=== PATIENT | male | born 1980 | race Native Hawaiian/Other Pacific Islander ===

== ENCOUNTER 2020-06-25 02:13 | Inpatient (IN) | payer OTHER ==
[~2020-06-25] VITALS: Ht 168 cm; Wt 83.9 kg
--- NOTE | 2020-06-25 02:42 | ED Upper Extremity ---
General Chief Complaint: Upper Extremity Stated Complaint: R WRIST/HAND SWELLING/PAIN Nursing Triage Note: PUNCTURE WOUND TO RIGHT HAND 06/22/20 INCREASED PAIN/SWELLING Nursing Sepsis Screen: No Definite Risk Source: patient History of Present Illness Date Seen by Provider: Jun 25, 2020 Time Seen by Provider: 02:24 Initial Comments PT ARRIVES VIA POV FROM HOME STATES HE WAS AT WORK AT [employer] ON WEDNESDAY NIGHT 06/22/20, AND SUSTAINED A PUNCTURE WOUND TO DORSAL ASPECT OF RIGHT HAND WITH A PIECE OF METAL. HAD PAIN AND SWELLING TO HIS RIGHT HAND ON Wednesday06/23/20, SO HE WENT TO [facility] STATES HE WAS GIVEN A SHOT OF UNKNOWN ANTIBIOTIC AND RX FOR UNKNOWN ANTIBIOTIC HE REPORTS NO XRAYS WERE DONE, AND DENIES GETTING A TETANUS VACCINATION, AND DOES NOT KNOW WHEN HE LAST HAD A TETANUS VACCINATION. C/O INCREASED PAIN, REDNESS AND SWELLING WENT BACK TO [facility] TODAY 06/24/20 AROUND 1800, AND WAS TOLD TO GO DIRECTLY TO ER. PT WENT HOME AND SLEPT FOR AWHILE, THEN CAME HERE NOW BECAUSE HE COULDN'T SLEEP DUE TO PAIN HAS NOT TAKEN ANYTHING FOR PAIN \\ NO KNOWN FEVER NO PARESTHESIAS OR MOTOR DEFICITS. NO PRIOR INJURY TO THIS HAND PT IS RIGHT HANDED DENIES ANY COVID-19 SYMPTOMS, EXPOSURE OR RECENT TESTING. PCP: [facility] Allergies and Home Medications Allergies Coded Allergies: No Known Drug Allergies (Unverified , 06/25/20) Patient Home Medication List Home Medication List Reviewed: Yes Review of Systems Constitutional: no symptoms reported Respiratory: no symptoms reported Cardiovascular: no symptoms reported Gastrointestinal: no symptoms reported Musculoskeletal: see HPI Skin: see HPI Psychiatric/Neurological: No Symptoms Reported Past Wtbvurn-Ixgghv-Aryosh Hx Past Med/Social Hx: Reviewed and Corrections made Patient Social History Alcohol Use: Occasionally Uses Drug of Choice: DENIES Smoking Status: Never a Smoker 2nd Hand Smoke Exposure: No Recent Infectious Disease Expo: No Recent Hopitalizations: No Seasonal Allergies Seasonal Allergies: No Past Medical History Surgeries: No Respiratory: No Cardiac: No Neurological: No Genitourinary: No Gastrointestinal: No Musculoskeletal: No Endocrine: No HEENT: No Cancer: No Psychosocial: No Integumentary: No Blood Disorders: No Physical Exam Vital Signs Vital Signs - First Documented 06/25/20 06/25/20 02:23 03:58 Temp 36.2 Pulse 126 Resp 18 B/P (MAP) 132/87 (102) Pulse Ox 95 O2 Delivery Room Air O2 Flow Rate 2.00 Capillary Refill : Less Than 3 Seconds Height, Weight, BMI Height: '" Weight: lbs. oz. kg; 27.00 BMI Method: General Appearance: WD/WN, no apparent distress Cardiovascular: normal peripheral pulses, regular rate, rhythm, no murmur Respiratory: normal breath sounds Shoulder: non-tender Elbow/Forearm: Right, pain, soft tissue tenderness, swelling Wrist: Yes limited ROM, Yes pain, Yes soft tissue tenderness, Yes swelling Hand: Right, infection, limited ROM, soft tissue tenderness, stiffness, swelling Neurologic/Tendon: normal sensation, normal motor functions, normal tendon fu nctions Neurologic/Psychiatric: no motor/sensory deficits, alert, normal mood/affect, oriented x 3 Skin: normal color (PT IS ), warm/dry, other (PINPOINT PUNCTURE SITE TO DORSAL ASPECT OF CENTER OF RIGHT HAND. NO DRAINAGE OR FLUCTUANCE) ENTIRE RIGHT HAND, WRIST, FOREARM, ELBOW AND DISTAL HALF OF UPPER ARM WITH WARMTH, ERYTHEMA, TENDERNESS AND SWELLING. Progress/Results/Core Measures Results/Orders Lab Results Laboratory Tests Test 06/25/20 02:35 Range/Units White Blood Count 10.1 4.3-11.0 10^3/uL Red Blood Count 5.86 H 4.30-5.52 10^6/uL Hemoglobin 18.8 H 13.3-17.7 g/dL Hematocrit 53 40-54 % Mean Corpuscular Volume 90 80-99 fL Mean Corpuscular Hemoglobin 32 25-34 pg Mean Corpuscular Hemoglobin Concent 36 32-36 g/dL Red Cell Distribution Width 11.9 10.0-14.5 % Platelet Count 338 130-400 10^3/uL Mean Platelet Volume 9.7 9.0-12.2 fL Immature Granulocyte % (Auto) 0 % Neutrophils (%) (Auto) 49 42-75 % Lymphocytes (%) (Auto) 42 12-44 % Monocytes (%) (Auto) 7 0-12 % Eosinophils (%) (Auto) 2 0-10 % Basophils (%) (Auto) 1 0-10 % Neutrophils # (Auto) 4.9 1.8-7.8 10^3/uL Lymphocytes # (Auto) 4.3 H 1.0-4.0 10^3/uL Monocytes # (Auto) 0.7 0.0-1.0 10^3/uL Eosinophils # (Auto) 0.2 0.0-0.3 10^3/uL Basophils # (Auto) 0.1 0.0-0.1 10^3/uL Immature Granulocyte # (Auto) 0.0 0.0-0.1 10^3/uL Erythrocyte Sedimentation Rate 1 0-15 MM/HR Prothrombin Time 12.5 12.2-14.7 SEC INR Comment 0.9 0.8-1.4 Activated Partial Thromboplast Time 33 24-35 SEC Sodium Level 140 135-145 MMOL/L Potassium Level 3.7 3.6-5.0 MMOL/L Chloride Level 103 98-107 MMOL/L Carbon Dioxide Level 24 21-32 MMOL/L Anion Gap 13 5-14 MMOL/L Blood Urea Nitrogen 10 7-18 MG/DL Creatinine 0.89 0.60-1.30 MG/DL Estimat Glomerular Filtration Rate > 60 BUN/Creatinine Ratio 11 Glucose Level 151 H 70-105 MG/DL Lactic Acid Level 2.06 *H 0.50-2.00 MMOL/L Calcium Level 8.6 8.5-10.1 MG/DL Corrected Calcium 8.3 L 8.5-10.1 MG/DL Total Bilirubin 0.5 0.1-1.0 MG/DL Aspartate Amino Transf (AST/SGOT) 28 5-34 U/L Alanine Aminotransferase (ALT/SGPT) 24 0-55 U/L Alkaline Phosphatase 73 40-136 U/L C-Reactive Protein High Sensitivity 0.78 H 0.00-0.50 MG/DL Total Protein 8.9 H 6.4-8.2 GM/DL Albumin 4.4 3.2-4.5 GM/DL Procalcitonin 0.02 <0.10 NG/ML My Orders Orders - MARIA LUISA DIALLO DO Ed Iv/Invasive Line Start (06/25/20 02:35) Cbc With Automated Diff (06/25/20 02:35) Comprehensive Metabolic Panel (06/25/20 02:35) Hs C Reactive Protein (06/25/20 02:35) Lactic Acid Analyzer (06/25/20 02:35) Procalcitonin (Pct) (06/25/20 02:35) Protime With Inr (06/25/20 02:35) Partial Thromboplastin Time (06/25/20 02:35) Blood Culture (06/25/20 02:35) Erythrocyte Sedimentation Rate (06/25/20 02:35) Hand, Right, 3 Views (06/25/20 02:35) Dipht,Pertuss(Acell),Tet Adult (Boostrix (06/25/20 02:45) Vancomycin Injection (Vancomycin Injecti (06/25/20 02:45) Piperacillin Sodium/Tazobactam (Zosyn Vi (06/25/20 02:45) Ketorolac Injection (Toradol Injection) (06/25/20 02:43) Diphenhydramine Injection (Benadryl Inje (06/25/20 03:32) Methylprednisolone Sod Succ (Solu-Medrol (06/25/20 03:33) Famotidine Injection (Pepcid Injection) (06/25/20 03:33) Medications Given in ED Current Medications Medications Dose Ordered Sig/Omayra Route Start Time Stop Time Status Last Admin Dose Admin Diphenhydramine HCl 50 mg STK-MED ONCE .ROUTE 06/25/20 03:32 06/25/20 03:38 DC 06/25/20 03:45 50 MG Diphtheria/ Tetanus/Acell Pertussis 0.5 ml ONCE ONCE IM 06/25/20 02:45 06/25/20 02:46 DC 06/25/20 02:45 0.5 ML Famotidine 20 mg STK-MED ONCE .ROUTE 06/25/20 03:33 06/25/20 03:38 DC 06/25/20 03:45 20 MG Methylprednisolone Sodium Succinate 125 mg STK-MED ONCE .ROUTE 06/25/20 03:33 06/25/20 03:38 DC 06/25/20 03:46 125 MG Piperacillin Sod/ Tazobactam Sod 4.5 gm/Sodium Chloride 100 ml @ 200 mls/hr ONCE ONCE IV 06/25/20 02:45 06/25/20 03:14 DC 06/25/20 02:57 200 MLS/HR Vancomycin HCl 1000 mg/Sodium Chloride 250 ml @ 250 mls/hr ONCE ONCE IV 06/25/20 02:45 06/25/20 03:44 DC 06/25/20 02:57 250 MLS/HR Vital Signs/I&O 06/25/20 06/25/20 06/25/20 06/25/20 02:23 03:58 04:07 04:22 Temp 36.2 36.6 36.8 Pulse 126 109 91 Resp 18 20 20 B/P (MAP) 132/87 (102) 134/96 121/74 (90) Pulse Ox 95 91 93 94 O2 Delivery Room Air Nasal Cannula Nasal Cannula Room Air O2 Flow Rate 2.00 2.00 Blood Pressure Mean: 102 Progress Progress Note : Progress Note GIVEN IV FLUIDS, DPT VACCINATION AND TORADOL GAVE ZOSYN 4.5 GM AND HAD RECEIVED APPROXIMATELY 1/2 DOSE OF VANCOMYCIN 1 GRAM BAG, WHEN PT DEVELOPED DIFFUSE HIVES TO BACK AND TO FACE NO SWELLING TO LIPS OR TONGUE NO DIFFICULTY BREATHING OR SWALLOWING NO DIZZINESS OR SYNCOPE. NO NAUSEA/VOMITING GIVEN BENADRYL, PEPCID AND SOLUMEDROL--HIVES RESOLVING AND ITCHING IS GONE. Diagnostic Imaging Comments XRAYS RIGHT HAND--SOFT TISSUE SWELLING, NO FOREIGN BODY OR BONY INJURY. PENDING RADIOLOGIST REVIEW Departure Communication (Admissions) 1182--SPOKE WITH DR. GREWAL, CHEF K[employer]EN MANAGER FOR [facility]. ACCEPTS PT FOR ADMIT. Impression Primary Impression: Puncture wound of right hand with infection Additional Impressions: RIGHT ARM AND HAND CELLULITIS Failure of outpatient treatment Iuxuielxda-jdlqnmbhq-bwmdspz (DPT) vaccination administered at current visit Allergic reaction caused by a drug Disposition: ADMITTED INPATIENT Condition: Stable Admissions Decision to Admit Reason: Admit from ER (General) Decision to Admit/Date: Jun 25, 2020 Time/Decision to Admit Time: 03:45 MARIA LUISA DIALLO DO Jun 25, 2020 02:42
[2020-06-25] MEDS ORDERED: KETOROLAC 30 MG/ML VIAL IVP STA (02:43)
[2020-06-25] MEDS ORDERED: PIPERACILLIN SODIUM/TAZOBACTAM 4.5 GM in NS (IVPB) 100 ML IV ONE (02:45)
[2020-06-25] MEDS ORDERED: TETANUS,DIPTH,PERTUSS P/F (BOOSTRIX) 0.5 ML VIAL IM ONE (02:45)
[2020-06-25] MEDS ORDERED: VANCOMYCIN INJECTION 1,000 MG in NS (IVPB) 250 ML IV ONE (02:45)
[2020-06-25 02:57] LABS: BASOPHILS # (AUTO) 0.1 10^3/uL (0.0-0.1); BASOPHILS % (AUTO) 1 % (0-10); EOSINOPHILS # (AUTO) 0.2 10^3/uL (0.0-0.3); EOSINOPHILS % (AUTO) 2 % (0-10); HEMATOCRIT 53 % (40-54); HEMOGLOBIN 18.8 g/dL (13.3-17.7); LYMPHOCYTES # (AUTO) 4.3 10^3/uL (1.0-4.0); LYMPHOCYTES % (AUTO) 42 % (12-44); MEAN CORPUSCULAR HEMOGLOBIN 32 pg (25-34); MEAN CORPUSCULAR HGB CONC 36 g/dL (32-36); MEAN CORPUSCULAR VOLUME 90 fL (80-99); MEAN PLATELET VOLUME 9.7 fL (9.0-12.2); MONOCYTES # (AUTO) 0.7 10^3/uL (0.0-1.0); MONOCYTES % (AUTO) 7 % (0-12); NEUTROPHILS # (AUTO) 4.9 10^3/uL (1.8-7.8); NEUTROPHILS % (AUTO) 49 % (42-75); PLATELET COUNT 338 10^3/uL (130-400); WHITE BLOOD COUNT 10.1 10^3/uL (4.3-11.0)
[2020-06-25 03:26] LABS: INR 0.9 (0.8-1.4); PROTHROMBIN TIME PATIENT 12.5 SEC (12.2-14.7)
[2020-06-25 03:32] LABS: ERYTHROCYTE SEDIMENTATION RATE 1 MM/HR (0-15)
[2020-06-25] MEDS ORDERED: diphenhydrAMINE 50 MG/ML INJ (BENADRYL) ONE (03:32)
[2020-06-25] MEDS ORDERED: methylPREDNISolone 125 MG (Solu-MEDROL) VIAL ONE (03:33)
[2020-06-25] MEDS ORDERED: FAMOTIDINE 20MG/2ML IV (PEPCID) ONE (03:33)
[2020-06-25 03:35] LABS: ALANINE AMINOTRANSFERASE 24 U/L (0-55); ALBUMIN 4.4 GM/DL (3.2-4.5); ALKALINE PHOSPHATASE 73 U/L (40-136); BILIRUBIN,TOTAL 0.5 MG/DL (0.1-1.0); BUN/CREATININE RATIO 11; CALCIUM 8.6 MG/DL (8.5-10.1); CARBON DIOXIDE 24 MMOL/L (21-32); CHLORIDE 103 MMOL/L (98-107); CREATININE SERUM 0.89 MG/DL (0.60-1.30); GFR ESTIMATED > 60; GLUCOSE 151 MG/DL (70-105); POTASSIUM 3.7 MMOL/L (3.6-5.0); SODIUM 140 MMOL/L (135-145); TOTAL PROTEIN 8.9 GM/DL (6.4-8.2)
[2020-06-25 04:22] VITALS: BP 121/74
[2020-06-25] MEDS ORDERED: CLINDAMYCIN 900 MG/50 ML IVPB 50 ML IV ONE (04:32)
[2020-06-25] MEDS ORDERED: 1/2 NS W/KCL 20 MEQ/L 1,000 ML IV ONE (04:32)
[2020-06-25] MEDS ORDERED: diphenhydrAMINE 50 MG/ML INJ (BENADRYL) IVP PRN (05:00)
[2020-06-25] MEDS ORDERED: ACETAMINOPHEN 500 MG TAB (TYLENOL) PO PRN (05:00)
[2020-06-25] MEDS ORDERED: FAMOTIDINE 20MG/2ML IV (PEPCID) IVP PRN (05:00)
[2020-06-25] MEDS ORDERED: methylPREDNISolone 125 MG (Solu-MEDROL) VIAL IVP PRN (05:00)
[2020-06-25] MEDS: 1/2 NS W/KCL 20 MEQ/L 1,000 ML IV SCH ×3 (05:09→17:15)
[2020-06-25] MEDS: CLINDAMYCIN 600 MG/50 ML IVPB 50 ML IV SCH ×3 (05:09→21:49)
--- NOTE | 2020-06-25 06:17 | Diagnostic Imaging Report ---
INDICATION: Puncture wound to right hand 3 days earlier with increased pain and swelling. TECHNIQUE: Three views of the right hand. CORRELATION STUDY: None FINDINGS: There is normal alignment and appearance of the osseous structures of the hand. The joint spaces are maintained. There is no acute fracture. Metallic BB over the dorsal aspect of the hand was placed prior to imaging. There is soft tissue edema along the dorsal aspect of the hand. No radiographic evidence of foreign body. IMPRESSION: 1. Negative for acute bony abnormality of the hand. Soft tissue swelling dorsal aspect of the hand. Dictated by: Dictated on workstation # [id number]
[2020-06-25 08:00] VITALS: BP 121/74
[2020-06-25] MEDS ORDERED: IBUP-2185 PO (11:20)
[2020-06-25] MEDS ORDERED: CEPH500T PO (11:20)
[2020-06-25] MEDS ORDERED: ACET-2267 PO (11:20)
[2020-06-25 12:00] VITALS: BP 124/74
[2020-06-25 16:14] VITALS: BP 148/85
--- NOTE | 2020-06-25 17:04 | History & Physical ---
HPI History of Present Illness: 40 yo M states that he got a puncture wound from a piece of metal while at work. States that he went to walk in care but it is getting more swollen and red and is more tender to touch. Received Tdap in ER. Denies any other medical conditions or taking any other medications other then tylenol OTC. States that it is tight when he makes a fist from the swelling but he can still feel all his fingers. Denies any fever or chills. Source: patient Exam Limitations: no limitations Date seen by provider: Jun 25, 2020 Time Seen by Provider: 10:00 Attending Physician Dakota Maldonado MD PCP Consult Date of Admission Jun 25, 2020 at 04:06 Home Medications Home Medications Reviewed patient Home Medication Reconciliation performed by pharmacy medication reconciliations electrical technician instructor and/or nursing. Patients Allergies have been reviewed. Allergies Coded Allergies: No Known Drug Allergies (Unverified , 06/25/20) BWN-Rqfxil-Snovlj Hx Patient Social History Drug of Choice: DENIES Smoking Status: Never a Smoker 2nd Hand Smoke Exposure: No Recent Hopitalizations: No Alcohol Use?: Yes Have you traveled recently?: No Past Medical History NA Review of Systems ([facility]) Constitutional: no symptoms reported; No chills, No fever EENTM: no symptoms reported; No mouth pain, No nose congestion, No nose pain Respiratory: no symptoms reported; No cough, No dyspnea on exertion, No short of breath Cardiovascular: no symptoms reported; No chest pain, No edema, No palpitations Gastrointestinal: no symptoms reported; No abdominal pain, No constipation, No diarrhea, No nausea, No vomiting Genitourinary: no symptoms reported; No dysuria, No frequency, No hematuria Musculoskeletal: joint swelling (right wrist and elbow) Skin: rash Psychiatric/Neurological: Weakness Reviewed Test Results Reviewed Test Results Lab Laboratory Tests Test 06/25/20 02:35 06/25/20 05:09 06/25/20 07:15 06/25/20 09:19 Range/Units White Blood Count 10.1 4.3-11.0 10^3/uL Red Blood Count 5.86 H 4.30-5.52 10^6/uL Hemoglobin 18.8 H 13.3-17.7 g/dL Hematocrit 53 40-54 % Mean Corpuscular Volume 90 80-99 fL Mean Corpuscular Hemoglobin 32 25-34 pg Mean Corpuscular Hemoglobin Concent 36 32-36 g/dL Red Cell Distribution Width 11.9 10.0-14.5 % Platelet Count 338 130-400 10^3/uL Mean Platelet Volume 9.7 9.0-12.2 fL Immature Granulocyte % (Auto) 0 % Neutrophils (%) (Auto) 49 42-75 % Lymphocytes (%) (Auto) 42 12-44 % Monocytes (%) (Auto) 7 0-12 % Eosinophils (%) (Auto) 2 0-10 % Basophils (%) (Auto) 1 0-10 % Neutrophils # (Auto) 4.9 1.8-7.8 10^3/uL Lymphocytes # (Auto) 4.3 H 1.0-4.0 10^3/uL Monocytes # (Auto) 0.7 0.0-1.0 10^3/uL Eosinophils # (Auto) 0.2 0.0-0.3 10^3/uL Basophils # (Auto) 0.1 0.0-0.1 10^3/uL Immature Granulocyte # (Auto) 0.0 0.0-0.1 10^3/uL Erythrocyte Sedimentation Rate 1 0-15 MM/HR Prothrombin Time 12.5 12.2-14.7 SEC INR Comment 0.9 0.8-1.4 Activated Partial Thromboplast Time 33 24-35 SEC Sodium Level 140 135-145 MMOL/L Potassium Level 3.7 3.6-5.0 MMOL/L Chloride Level 103 98-107 MMOL/L Carbon Dioxide Level 24 21-32 MMOL/L Anion Gap 13 5-14 MMOL/L Blood Urea Nitrogen 10 7-18 MG/DL Creatinine 0.89 0.60-1.30 MG/DL Estimat Glomerular Filtration Rate > 60 BUN/Creatinine Ratio 11 Glucose Level 151 H 70-105 MG/DL Lactic Acid Level 2.06 *H 2.09 *H 2.16 *H 2.44 *H 0.50-2.00 MMOL/L Calcium Level 8.6 8.5-10.1 MG/DL Corrected Calcium 8.3 L 8.5-10.1 MG/DL Total Bilirubin 0.5 0.1-1.0 MG/DL Aspartate Amino Transf (AST/SGOT) 28 5-34 U/L Alanine Aminotransferase (ALT/SGPT) 24 0-55 U/L Alkaline Phosphatase 73 40-136 U/L C-Reactive Protein High Sensitivity 0.78 H 0.00-0.50 MG/DL Total Protein 8.9 H 6.4-8.2 GM/DL Albumin 4.4 3.2-4.5 GM/DL Procalcitonin 0.02 <0.10 NG/ML Physical Exam-([facility]) Physical Exam Vital Signs VS - Last 72 Hours, by Label 06/25/20 06/25/20 06/25/20 06/25/20 02:23 03:58 04:07 04:22 Temp 36.2 36.6 36.8 Pulse 126 109 91 Resp 18 20 20 B/P (MAP) 132/87 (102) 134/96 121/74 (90) Pulse Ox 95 91 93 94 O2 Delivery Room Air Nasal Cannula Nasal Cannula Room Air O2 Flow Rate 2.00 2.00 06/25/20 06/25/20 06/25/20 06/25/20 04:53 05:22 08:00 08:00 Temp 36.8 Pulse 95 91 Resp 20 B/P (MAP) 121/74 (90) Pulse Ox 94 O2 Delivery Nasal Cannula Room Air Room Air O2 Flow Rate 2.00 06/25/20 06/25/20 06/25/20 12:00 12:37 16:14 Temp 36.2 36.6 Pulse 91 82 101 Resp 20 20 B/P (MAP) 124/74 (91) 148/85 (106) Pulse Ox 96 96 O2 Delivery Room Air Room Air Capillary Refill : Less Than 3 Seconds General Appearance: WD/WN, no apparent distress HEENT: PERRL/EOMI Neck: non-tender, full range of motion, supple Respiratory: chest non-tender, lungs clear, normal breath sounds, no respiratory distress, no accessory muscle use Cardiovascular: normal peripheral pulses, regular rate, rhythm, no murmur Gastrointestinal: normal bowel sounds, non tender, soft Back: no CVA tenderness, no vertebral tenderness Extremities: swelling, other (Right UE: swelling and erythema up past elbow, full ROM) Neurologic/Psychiatric: supervisor print line II-XII nml as tested, no motor/sensory deficits, alert, normal mood/affect, oriented x 3 Skin: normal color, warm/dry Lymphatic: no adenopathy Assessment/Plan Assessment/Plan Admission Status: Inpatient Order (span 2 midnights) Reason for Inpatient Admission: Patient requiring IV antibiotics after failed outpatient treatment (1) Puncture wound of right hand with infection Status: Acute Assessment & Plan: 06/25: Tdap given in ER, Started on Vanco and had allergic reaction and switched to IV Clinda to cover MRSA Qualifiers: Qualified Codes: S61.431A - Puncture wound without foreign body of right hand, initial encounter; L08.9 - Local infection of the skin and subcutaneous tissue, unspecified (2) CELLULITIS RIGHT HAND AND ARM Status: Acute DAKOTA MALDONADO MD Jun 25, 2020 17:04
[2020-06-25 20:15] VITALS: BP 156/82
[2020-06-26] VITALS: BP 119/67
[2020-06-26] MEDS: 1/2 NS W/KCL 20 MEQ/L 1,000 ML IV SCH ×4 (00:25→21:52)
[2020-06-26 03:35] VITALS: BP 135/85
[2020-06-26 05:24] LABS: BASOPHILS # (AUTO) 0.1 10^3/uL (0.0-0.1); BASOPHILS % (AUTO) 0 % (0-10); EOSINOPHILS % (AUTO) 0 % (0-10); HEMATOCRIT 51 % (40-54); LYMPHOCYTES # (AUTO) 1.6 10^3/uL (1.0-4.0); LYMPHOCYTES % (AUTO) 8 % (12-44); MEAN CORPUSCULAR HEMOGLOBIN 32 pg (25-34); MEAN CORPUSCULAR HGB CONC 35 g/dL (32-36); MEAN CORPUSCULAR VOLUME 91 fL (80-99); MEAN PLATELET VOLUME 9.7 fL (9.0-12.2); MONOCYTES # (AUTO) 1.5 10^3/uL (0.0-1.0); MONOCYTES % (AUTO) 7 % (0-12); NEUTROPHILS # (AUTO) 18.1 10^3/uL (1.8-7.8); NEUTROPHILS % (AUTO) 85 % (42-75); PLATELET COUNT 307 10^3/uL (130-400); WHITE BLOOD COUNT 21.4 10^3/uL (4.3-11.0)
[2020-06-26 05:35] LABS: ALBUMIN 4.1 GM/DL (3.2-4.5)
[2020-06-26 05:36] LABS: CHLORIDE 106 MMOL/L (98-107); POTASSIUM 4.3 MMOL/L (3.6-5.0); SODIUM 135 MMOL/L (135-145)
[2020-06-26 05:37] LABS: CALCIUM 9.1 MG/DL (8.5-10.1)
[2020-06-26 05:38] LABS: GLUCOSE 133 MG/DL (70-105); TOTAL PROTEIN 8.4 GM/DL (6.4-8.2)
[2020-06-26 05:39] LABS: CARBON DIOXIDE 19 MMOL/L (21-32)
[2020-06-26 05:40] LABS: BILIRUBIN,TOTAL 0.9 MG/DL (0.1-1.0)
[2020-06-26 05:41] LABS: ALKALINE PHOSPHATASE 59 U/L (40-136)
[2020-06-26 05:42] LABS: CREATININE SERUM 0.86 MG/DL (0.60-1.30); GFR ESTIMATED > 60
[2020-06-26 05:43] LABS: BUN/CREATININE RATIO 14
[2020-06-26 05:45] LABS: ALANINE AMINOTRANSFERASE 25 U/L (0-55)
[2020-06-26] MEDS: CLINDAMYCIN 600 MG/50 ML IVPB 50 ML IV SCH ×3 (05:56→21:52)
[2020-06-26 06:22] LABS: BAND NEUTROPHILS 1 %; BASOPHILS % (MANUAL) 1 %; LYMPHOCYTES % (MANUAL) 11 %; MONOCYTES % (MANUAL) 5 %; NEUTROPHILS % (MANUAL) 82 %; RBC MORPH NORMAL
[2020-06-26 08:00] VITALS: BP_SYST 106; BP_SYST 131; BP_DIAS 68; BP_DIAS 81
[2020-06-26 12:00] VITALS: BP 129/80
[2020-06-26 15:30] VITALS: BP 129/78
--- NOTE | 2020-06-26 18:17 | Progress Note ---
Subjective Subjective/Events-last exam Patient doing well this AM. Swelling and redness improved. No ON events. Tolerating PO diet and ambulation Review of Systems Pulmonary: No Dyspnea, No Cough Cardiovascular: No: Chest Pain, Palpitations Gastrointestinal: No: Nausea, Vomiting, Abdominal Pain, Diarrhea, Constipation Musculoskeletal: arm pain (right arm tightness and swelling) Focused Exam Lactate Level 06/25/20 07:15: Lactic Acid Level 2.16*H 06/25/20 09:19: Lactic Acid Level 2.44*H 06/26/20 05:03: Lactic Acid Level 1.33 Objective Exam Last Set of Vital Signs Vital Signs Date Time Temp Pulse Resp B/P (MAP) Pulse Ox O2 Delivery O2 Flow Rate FiO2 06/26/20 15:30 36.2 72 18 129/78 (95) 96 Room Air 06/25/20 04:53 2.00 Capillary Refill : Less Than 3 Seconds I&O Intake and Output 06/25/20 23:59 Intake Total 1805 ml Output Total 0 ml Balance 1805 ml Intake Oral 1530 ml IV Total 275 ml Output Urine Total 0 ml # Voids 6 # Bowel Movements 1 Daily Weight Change No General: Alert, Oriented X3, Cooperative, No Acute Distress HEENT: Mucous Memb Moist/Follett Lungs: Clear to Auscultation, Normal Air Movement Heart: Regular Rate, No Murmurs Abdomen: Normal Bowel Sounds, Soft, No Tenderness Skin: Other (swelling in RUE to elbow, normal ROM in Right shoulder, elbow and wrist, mild ttp right wrist) Neuro: Strength at 5/5 X4 Ext, Cranial Nerves 3-12 NL Results/Procedures Lab Laboratory Tests 06/26/20 05:03: White Blood Count 21.4H, Red Blood Count 5.64H, Hemoglobin 18.0H, Hematocrit 51, Mean Corpuscular Volume 91, Mean Corpuscular Hemoglobin 32, Mean Corpuscular Hemoglobin Concent 35, Red Cell Distribution Width 11.9, Platelet Count 307, Mean Platelet Volume 9.7, Immature Granulocyte % (Auto) 1, Neutrophils (%) (Auto) 85H, Lymphocytes (%) (Auto) 8L, Monocytes (%) (Auto) 7, Eosinophils (%) (Auto) 0, Basophils (%) (Auto) 0, Neutrophils # (Auto) 18.1H, Lymphocytes # (Auto) 1.6, Monocytes # (Auto) 1.5H, Eosinophils # (Auto) 0.0, Basophils # (Auto) 0.1, Immature Granulocyte # (Auto) 0.1, Neutrophils % (Manual) 82, Lymphocytes % (Manual) 11, Monocytes % (Manual) 5, Basophils % (Manual) 1, Band Neutrophils 1, Blood Morphology Comment NORMAL, Sodium Level 135, Potassium Level 4.3, Chloride Level 106, Carbon Dioxide Level 19L, Anion Gap 10, Blood Urea Nitrogen 12, Creatinine 0.86, Estimat Glomerular Filtration Rate > 60, BUN/Creatinine Ratio 14, Glucose Level 133H, Lactic Acid Level 1.33, Calcium Level 9.1, Corrected Calcium 9.0, Total Bilirubin 0.9, Aspartate Amino Transf (AST/SGOT) 26, Alanine Aminotransferase (ALT/SGPT) 25, Alkaline Phosphatase 59, Total Protein 8.4H, Albumin 4.1 Microbiology 06/25/20 Blood Culture - Preliminary, Resulted No growth Assessment/Plan Assessment/Plan (1) Puncture wound of right hand with infection Status: Acute Assessment & Plan: 06/25: Tdap given in ER, Started on Vanco and had allergic reaction and switched to IV Clinda to cover MRSA 06/26: Swelling improved, continue IV antibiotics, Leukocytosis today Qualifiers: Qualified Codes: S61.431A - Puncture wound without foreign body of right hand, initial encounter; L08.9 - Local infection of the skin and subcutaneous tissue, unspecified (2) CELLULITIS RIGHT HAND AND ARM Status: Acute (3) Leukocytosis Status: Acute Assessment & Plan: 06/26: Jump in WBC today, will trend tomorrow, if improving plan to d/c home tomorrow Qualifiers: Qualified Codes: D72.829 - Elevated white blood cell count, unspecified DAKOTA GREWAL MD Jun 26, 2020 18:17
[2020-06-26 20:00] VITALS: BP 135/79
[2020-06-27] VITALS: BP 142/82
[2020-06-27 03:49] VITALS: BP 148/90
[2020-06-27] MEDS: CLINDAMYCIN 600 MG/50 ML IVPB 50 ML IV SCH (05:03)
[2020-06-27] MEDS: 1/2 NS W/KCL 20 MEQ/L 1,000 ML IV SCH ×2 (05:03→10:05)
[2020-06-27 06:09] LABS: BASOPHILS # (AUTO) 0.1 10^3/uL (0.0-0.1); BASOPHILS % (AUTO) 1 % (0-10); EOSINOPHILS % (AUTO) 0 % (0-10); HEMATOCRIT 49 % (40-54); HEMOGLOBIN 17.2 g/dL (13.3-17.7); LYMPHOCYTES # (AUTO) 2.6 10^3/uL (1.0-4.0); LYMPHOCYTES % (AUTO) 27 % (12-44); MEAN CORPUSCULAR HEMOGLOBIN 32 pg (25-34); MEAN CORPUSCULAR HGB CONC 36 g/dL (32-36); MEAN CORPUSCULAR VOLUME 91 fL (80-99); MONOCYTES # (AUTO) 0.7 10^3/uL (0.0-1.0); MONOCYTES % (AUTO) 8 % (0-12); NEUTROPHILS # (AUTO) 6.2 10^3/uL (1.8-7.8); NEUTROPHILS % (AUTO) 64 % (42-75); PLATELET COUNT 275 10^3/uL (130-400); WHITE BLOOD COUNT 9.7 10^3/uL (4.3-11.0)
[2020-06-27 06:27] LABS: ALANINE AMINOTRANSFERASE 18 U/L (0-55); ALBUMIN 3.6 GM/DL (3.2-4.5); ALKALINE PHOSPHATASE 48 U/L (40-136); BILIRUBIN,TOTAL 0.6 MG/DL (0.1-1.0); BUN/CREATININE RATIO 16; CALCIUM 8.5 MG/DL (8.5-10.1); CARBON DIOXIDE 20 MMOL/L (21-32); CHLORIDE 108 MMOL/L (98-107); CREATININE SERUM 0.82 MG/DL (0.60-1.30); GFR ESTIMATED > 60; GLUCOSE 110 MG/DL (70-105); POTASSIUM 4.1 MMOL/L (3.6-5.0); SODIUM 138 MMOL/L (135-145); TOTAL PROTEIN 7.4 GM/DL (6.4-8.2)
[2020-06-27 08:00] VITALS: BP 114/66
[2020-06-27 11:43] VITALS: BP 120/80
--- NOTE | 2020-06-27 12:29 | Discharge Summary ---
Diagnosis/Chief Complaint Date of Admission Jun 25, 2020 at 04:06 Date of Discharge Discharge Diagnosis Problems/Diagnosis: (1) Puncture wound of right hand with infection Assessment & Plan: 06/25: Tdap given in ER, Started on Vanco and had allergic reaction and switched to IV Clinda to cover MRSA 06/26: Swelling improved, continue IV antibiotics, Leukocytosis today Qualifiers: Qualified Codes: S61.431A - Puncture wound without foreign body of right hand, initial encounter; L08.9 - Local infection of the skin and subcutaneous tissue, unspecified Status: Acute (2) CELLULITIS RIGHT HAND AND ARM Status: Acute (3) Leukocytosis Assessment & Plan: 06/26: Jump in WBC today, will trend tomorrow, if improving plan to d/c home tomorrow Qualifiers: Qualified Codes: D72.829 - Elevated white blood cell count, unspecified Status: Acute Chief Complaint/HPI Chief Complaint/HPI 40 yo M states that he got a puncture wound from a piece of metal while at work. States that he went to walk in care but it is getting more swollen and red and is more tender to touch. Received Tdap in ER. Denies any other medical c onditions or taking any other medications other then tylenol OTC. States that it is tight when he makes a fist from the swelling but he can still feel all his fingers. Denies any fever or chills. Discharge Summary-Simple/Stand Consultations Discharge Physical Examination Allergies: Coded Allergies: No Known Drug Allergies (Unverified , 06/25/20) Vitals & I&Os Vital Sign - Last 12Hours Date Time Temp Pulse Resp B/P (MAP) Pulse Ox O2 Delivery O2 Flow Rate FiO2 06/27/20 11:43 36.2 68 18 120/80 (93) 95 Room Air 06/25/20 04:53 2.00 Intake and Output 06/27/20 00:00 Intake Total 1880 ml Balance 1880 ml Hospital Course See final discharge diagnosis. Discharge Instructions to patient/family Please see electronic discharge instructions given to patient. Discharge Medications Reviewed and agree with Discharge Medication list on patient's Discharge Instruction sheet DAKOTA GREWAL MD Jun 27, 2020 12:29
[2020-06-27] MEDS ORDERED: CLIN300C12 PO (12:37)
--- NOTE | 2020-06-27 12:40 | Discharge Summary ---
Discharge [facility] Reconcile Patient Problems Problems Reviewed?: Yes Discharge Medications New, Converted or Re-Newed RX: Transmitted to Pharmacy New Medications: Clindamycin HCl (Clindamycin HCl) 300 Mg Capsule 300 MG PO TID for 10 Days, #30 CAP Continued Medications: Acetaminophen (Tylenol Extra Strength) 500 Mg Tablet 1000 MG PO Q8H PRN for PAIN-MILD (1-4), TAB Discontinued Medications: Cephalexin (Cephalexin) 500 Mg Tablet 500 MG PO TID for 7 Days, TAB FILLED 06-22-2020 #21/7 DAY SUPPLY Ibuprofen (Ibuprofen) 200 Mg Capsule 400 MG PO Q8H PRN for PAIN-MILD (1-4), CAP Patient Instructions Goal/Follow Up Appt: You have an appt with Dr Corona on July 01 @ 10 AM to look at your arm and possibly release you back to work Patient Instructions: - Make sure you complete your antibiotics Activity & Diet Discharge Diet: No Restrictions Activity as Tolerated: Yes Copy Copies To 1: Cj LEÓN HOLLY R MD Jun 27, 2020 12:40
[2020-06-27 13:11] VITALS: BP 120/80
== END 2020-06-27 13:15 | disposition home or self-care (01) | DRG 605 ==
LOC: ER 02:20 → 4TH 04:06
PROVIDERS: ADMIT Family Medicine; ATTEND Family Medicine
DX: S61.431A Puncture wound without foreign body of right hand, initial encounter (principal); L03.113 Cellulitis of right upper limb; T36.8X5A Adverse effect of other systemic antibiotics, initial encounter; L50.0 Allergic urticaria; W45.8XXA Other foreign body or object entering through skin, initial encounter; Y92.63 Factory as the place of occurrence of the external cause; Y99.0 Civilian activity done for income or pay; Z23 Encounter for immunization
CPT/HCPCS: 36415; 73130; 80053; 83036; 83605; 84145; 85007; 85025; 85027; 85610; 85652; 85730; 86141; 87040; 90715; 94760

== ENCOUNTER 2020-12-17 20:50 | Emergency (ER) | payer SELFPAY ==
[~2020-12-17 20:50] MED LIST: ACET-2267 PO; CEPH500T PO; CLIN300C12 PO; IBUP-2185 PO
[2020-12-17] MEDS ORDERED: NS IV 1000 ML 1,000 ML ONE (21:24)
[2020-12-17 21:28] VITALS: BP_SYST 133; BP_SYST 143; BP_SYST 146; BP_DIAS 107; BP_DIAS 93; BP_DIAS 95
[2020-12-17 21:35] LABS: BASOPHILS # (AUTO) 0.1 10^3/uL (0.0-0.1); BASOPHILS % (AUTO) 1 % (0-10); EOSINOPHILS # (AUTO) 0.8 10^3/uL (0.0-0.3); EOSINOPHILS % (AUTO) 8 % (0-10); HEMATOCRIT 52 % (40-54); HEMOGLOBIN 18.5 g/dL (13.3-17.7); LYMPHOCYTES # (AUTO) 2.4 10^3/uL (1.0-4.0); LYMPHOCYTES % (AUTO) 26 % (12-44); MEAN CORPUSCULAR HEMOGLOBIN 33 pg (25-34); MEAN CORPUSCULAR HGB CONC 36 g/dL (32-36); MEAN CORPUSCULAR VOLUME 92 fL (80-99); MONOCYTES # (AUTO) 1.1 10^3/uL (0.0-1.0); MONOCYTES % (AUTO) 12 % (0-12); NEUTROPHILS # (AUTO) 4.8 10^3/uL (1.8-7.8); NEUTROPHILS % (AUTO) 52 % (42-75); PLATELET COUNT 168 10^3/uL (130-400); WHITE BLOOD COUNT 9.2 10^3/uL (4.3-11.0)
--- NOTE | 2020-12-17 21:37 | ED Syncope ---
General Stated Complaint: WEAKNESS Source of Information: Patient Exam Limitations: No Limitations History of Present Illness Date Seen by Provider: Dec 17, 2020 Time Seen by Provider: 21:14 Initial Comments Patient ER by private conveyance with chief complaint that for about a day now he is been having near syncopal episodes and weakness brought on after he walks for about 3 to 4 minutes. He has not had this before. He is not having any other symptoms other than a headache. He denies fevers cough shortness of breath chest pain. He denies a history of heart disease or family history. He denies dysuria but says he is having an episode of low back pain which is chronic for him. He is not having any numbness or difficulty speaking. He does not take any medications or follow-up with a doctor routinely. He does not smoke cigarettes. He drinks beer on the weekends. Allergies and Home Medications Allergies Coded Allergies: No Known Drug Allergies (Unverified , 06/25/20) Patient Home Medication List Home Medication List Reviewed: Yes Acetaminophen (Tylenol Extra Strength) 500 Mg Tablet, 1,000 MG PO Q8H PRN for PAIN-MILD (1-4), (Reported) Entered as Reported by: COOPER MOHAN on 06/25/20 1120 Clindamycin HCl (Clindamycin HCl) 300 Mg Capsule, 300 MG PO TID Prescribed by: DAKOTA GREWAL on 06/27/20 1237 Review of Systems Constitutional: No chills, No fever EENTM: No ear discharge, No ear pain Respiratory: No cough, No phlegm, No short of breath Cardiovascular: No chest pain, No edema Gastrointestinal: No abdominal pain, No constipation, No diarrhea, No nausea, No vomiting Genitourinary: No decreased output, No dysuria Musculoskeletal: see HPI, back pain; No joint pain Skin: No pruritus, No rash All Other Systems Reviewed Negative Unless Noted: Yes Past Vgnmktq-Dpgxch-Lrwnua Hx Patient Social History Tobacco Use?: No Use of E-Cig and/or Vaping dev: No Substance use?: No Alcohol Use?: Yes Alcohol type: Beer Seasonal Allergies Seasonal Allergies: No Past Medical History Surgeries: No Respiratory: No Cardiac: No Neurological: No Genitourinary: No Gastrointestinal: No Musculoskeletal: No Endocrine: No HEENT: No Cancer: No Psychosocial: No Integumentary: No Blood Disorders: No Physical Exam Vital Signs Capillary Refill : Height, Weight, BMI Height: '" Weight: lbs. oz. kg; 29.72 BMI Method: General Appearance: WD/WN, Mild Distress HEENT: PERRL/EOMI (4 mm reactive), TMs Normal, Moist Mucous Membranes Neck: Full Range of Motion, Normal Inspection, Non Tender Cardiovascular: Regular Rate, Rhythm, No Edema, No JVD, No Murmur, Normal Peripheral Pulses, Tachycardia Respiratory: Lungs Clear, Normal Breath Sounds, No Accessory Muscle Use, No Respiratory Distress Gastrointestinal: Normal Bowel Sounds, No Organomegaly, Non Tender, Soft Extremities: Normal Capillary Refill, Normal Inspection, Normal Range of Motion, No Pedal Edema Neurologic/Psychiatric: Alert, Oriented x3, No Motor/Sensory Deficits Cranial Nerves: Normal Hearing, Normal Speech Motor/Sensory: No Motor Deficit, No Sensory Deficit Skin: Normal Color, Warm/Dry Progress/Results/Core Measures Results/Orders Lab Results Laboratory Tests Test 12/17/20 21:20 12/17/20 21:30 Range/Units White Blood Count 9.2 4.3-11.0 10^3/uL Red Blood Count 5.60 H 4.30-5.52 10^6/uL Hemoglobin 18.5 H 13.3-17.7 g/dL Hematocrit 52 40-54 % Mean Corpuscular Volume 92 80-99 fL Mean Corpuscular Hemoglobin 33 25-34 pg Mean Corpuscular Hemoglobin Concent 36 32-36 g/dL Red Cell Distribution Width 13.2 10.0-14.5 % Platelet Count 168 130-400 10^3/uL Mean Platelet Volume 11.0 9.0-12.2 fL Immature Granulocyte % (Auto) 0 % Neutrophils (%) (Auto) 52 42-75 % Lymphocytes (%) (Auto) 26 12-44 % Monocytes (%) (Auto) 12 0-12 % Eosinophils (%) (Auto) 8 0-10 % Basophils (%) (Auto) 1 0-10 % Neutrophils # (Auto) 4.8 1.8-7.8 10^3/uL Lymphocytes # (Auto) 2.4 1.0-4.0 10^3/uL Monocytes # (Auto) 1.1 H 0.0-1.0 10^3/uL Eosinophils # (Auto) 0.8 H 0.0-0.3 10^3/uL Basophils # (Auto) 0.1 0.0-0.1 10^3/uL Immature Granulocyte # (Auto) 0.0 0.0-0.1 10^3/uL Sodium Level 132 L 135-145 MMOL/L Potassium Level 2.9 L 3.6-5.0 MMOL/L Chloride Level 95 L 98-107 MMOL/L Carbon Dioxide Level 25 21-32 MMOL/L Anion Gap 12 5-14 MMOL/L Blood Urea Nitrogen 6 L 7-18 MG/DL Creatinine 0.85 0.60-1.30 MG/DL Estimat Glomerular Filtration Rate 99 BUN/Creatinine Ratio 7 Glucose Level 157 H 70-105 MG/DL Calcium Level 10.2 H 8.5-10.1 MG/DL Corrected Calcium 8.5-10.1 MG/DL Total Bilirubin 1.2 H 0.1-1.0 MG/DL Aspartate Amino Transf (AST/SGOT) 86 H 5-34 U/L Alanine Aminotransferase (ALT/SGPT) 82 H 0-55 U/L Alkaline Phosphatase 59 40-136 U/L Troponin I < 0.028 <0.028 NG/ML C-Reactive Protein High Sensitivity 0.38 0.00-0.50 MG/DL B-Type Natriuretic Peptide < 10.0 <100.0 PG/ML Total Protein 9.1 H 6.4-8.2 GM/DL Albumin 4.6 H 3.2-4.5 GM/DL Serum Alcohol < 10 <10 MG/DL Influenza Type A (RT-PCR) Not Detected Not Detecte Influenza Type B (RT-PCR) Not Detected Not Detecte SARS-CoV-2 RNA (RT-PCR) Not Detected Not Detecte Urine Color YELLOW Urine Clarity CLEAR Urine pH 6.0 5-9 Urine Specific [place] <=1.005 1.016-1.022 Urine Protein NEGATIVE NEGATIVE Urine Glucose (UA) NEGATIVE NEGATIVE Urine Ketones NEGATIVE NEGATIVE Urine Nitrite NEGATIVE NEGATIVE Urine Bilirubin NEGATIVE NEGATIVE Urine Urobilinogen 0.2 < = 1.0 MG/DL Urine Leukocyte Esterase NEGATIVE NEGATIVE Urine RBC (Auto) TRACE-I NEGATIVE Urine RBC RARE /HPF Urine WBC NONE /HPF Urine Squamous Epithelial Cells RARE /HPF Urine Crystals NONE /LPF Urine Bacteria NEGATIVE /HPF Urine Casts NONE /LPF Urine Mucus NEGATIVE /LPF Urine Culture Indicated NO My Orders Orders - SWAPNIL,ROMEO J Ns Iv 1000 Ml (Sodium Chloride 0.9%) (12/17/20 21:24) Orthostatic Vital Signs (Adult (12/17/20 21:28) Ekg Tracing (12/17/20:) Continuous Ekg Monitoring (12/17/20:) Chest 1 View, Ap/Pa Only (12/17/20 21:28) Ua Culture If Indicated (12/17/20:) Cbc With Automated Diff (12/17/20:) Comprehensive Metabolic Panel (12/17/20:) Hs C Reactive Protein (12/17/20:28) Alcohol (12/17/20:) Troponin I (12/17/20:) BNP (12/17/20:) Covid 19 Inhouse Test (12/17/20:) Influenza A And B By Pcr (12/17/20:28) Isolation Central Supply Req (12/17/20:28) Potassium Cl 10meq/50ml Ivpb (Kcl 10 Meq (12/17/20 22:00) Ed Iv/Invasive Line Start (12/17/20 22:15) Ns Iv 500 Ml (Sodium Chloride 0.9%) (12/17/20 22:15) Medications Given in ED Current Medications Medications Dose Ordered Sig/Omayra Route Start Time Stop Time Status Last Admin Dose Admin Potassium Chloride 50 ml @ 50 mls/hr ONCE ONCE IV 12/17/20 22:00 12/17/20 22:59 DC 12/17/20 22:30 50 MLS/HR Sodium Chloride 500 ml @ 0 mls/hr Q0M ONCE IV 12/17/20 22:15 12/17/20 22:16 DC 12/17/20 22:30 999 MLS/HR Sodium Chloride 1,000 ml @ ud STK-MED ONCE .ROUTE 12/17/20 21:24 12/17/20 21:26 DC 12/17/20 21:33 1,000 MLS/HR Progress Progress Note #1: Time: 21:36 Progress Note Nonspecific near syncopal episodes with exertion without chest pain but he does present with tachycardia and a temperature of 99.7. We will look for infection by getting a swab of his nose and checking labs and urine and get a chest x-ray. We will also get EKG troponin BNP to work-up possible cardiac avenue for his near syncopal episodes. Orthostatic vital signs. Borderline orthostatics. A liter of normal saline was ordered. Progress Note #2: Time: 23:53 Progress Note Ambulated the patient around the ER multiple laps and were unable to elicit any further symptoms after a bolus of IV fluids. We will have him follow-up with cardiology outpatient in the next 1 to 2 days to discuss possible cardio syncope. Patient is okay with this plan. Return precautions were discussed. 0 points [place] Syncope Risk Score. Low risk; 1.9% risk of 30-day serious adverse event. Initial ECG Impression Date: Dec 17, 2020 Initial ECG Impression Time: 21:23 Initial ECG Rate: 98 Initial ECG Rhythm: Normal Sinus Initial ECG Intervals: Normal Initial ECG Impression: Normal Initial ECG Comparisson: No Previous ECG Available Comment Sinus tachycardia with early repolarization pattern but no clinically relevant ST elevation or depression Diagnostic Imaging Diagonstic Imaging: Xray Plain Films/CT/US/NM/MRI: chest Comments No acute cardiopulmonary process on 1 view chest x-ray. [email or web address] [place], [place] NAME: ANATOLIY UMANA [facility] REC#: [id number] PT STATUS: REG ER : 1980 PHYSICIAN: ROMEO KRAFT MD ADMIT DATE: 12/17/20/ER Signed Date of Exam:12/17/20 CHEST 1 VIEW, AP/PA ONLY CHEST 1 VIEW, AP/PA ONLY Indication: Near syncope Comparison: None available. Findings: No focal airspace disease in the visualized lungs. Please note that the posterior lower lobes are poorly evaluated by portable radiography. No pleural effusion or pneumothorax. Normal cardiomediastinal silhouette. Impression: 1. No acute cardiopulmonary process by portable radiography. Dictated by: Dictated on workstation # [id number] Dict: 12/17/202309 Trans: 12/17/202309 [facility] [id number] Interpreted by: SAAD SAM MD Electronically signed by: SAAD SAM MD 12/17/202309 Reviewed: Reviewed by Nm Departure Impression Primary Impression: Syncope Qualified Codes: R55 - Syncope and collapse Disposition: 01 HOME, SELF-CARE Condition: Stable Departure-Patient Inst. Decision time for Depature: 23:55 Patient Instructions: LOCAL PHYSICIAN LIST, Near Fainting (DC) Add. Discharge Instructions: Drink plenty of fluids. Take tomorrow off. Follow-up with Dr. Hawkins, systems qa analyst this week if possible to continue your work-up for near fainting. Establish care with a primary care provider. Return to the ER if you are having significant chest pain or continued passing out episodes. Work/School Note: Work Release Form Date Seen in the Emergency Department: Dec 17, 2020 Return to Work: Dec 19, 2020 Restrictions: No Restrictions ROMEO KRAFT Dec 17, 2020 21:37
[2020-12-17 21:38] LABS: BILIRUBIN,URINE NEGATIVE (NEGATIVE); CLARITY,URINE CLEAR; COLOR,URINE YELLOW; GLUCOSE, URINE (UA) NEGATIVE (NEGATIVE); KETONES,URINE NEGATIVE (NEGATIVE); LEUKOCYTE ESTERASE ,URINE NEGATIVE (NEGATIVE); NITRITE,URINE NEGATIVE (NEGATIVE); PROTEIN,URINE NEGATIVE (NEGATIVE)
[2020-12-17 21:41] LABS: ALBUMIN 4.6 GM/DL (3.2-4.5); CHLORIDE 95 MMOL/L (98-107); POTASSIUM 2.9 MMOL/L (3.6-5.0); SODIUM 132 MMOL/L (135-145)
[2020-12-17 21:42] LABS: CALCIUM 10.2 MG/DL (8.5-10.1)
[2020-12-17 21:43] LABS: GLUCOSE 157 MG/DL (70-105)
[2020-12-17 21:44] LABS: CARBON DIOXIDE 25 MMOL/L (21-32); TOTAL PROTEIN 9.1 GM/DL (6.4-8.2)
[2020-12-17 21:45] LABS: BILIRUBIN,TOTAL 1.2 MG/DL (0.1-1.0)
[2020-12-17 21:47] LABS: ALKALINE PHOSPHATASE 59 U/L (40-136); CREATININE SERUM 0.85 MG/DL (0.60-1.30); GFR ESTIMATED 99
[2020-12-17 21:48] LABS: BACTERIA,URINE NEGATIVE /HPF; RBC,URINE RARE /HPF; SQUAMOUS EPITHELIAL CELL,UR RARE /HPF
[2020-12-17 21:48] LABS: BUN/CREATININE RATIO 7
[2020-12-17 21:50] LABS: ALANINE AMINOTRANSFERASE 82 U/L (0-55)
[2020-12-17] MEDS ORDERED: POTASSIUM CL 10MEQ/50ML IVPB 50 ML IV ONE (22:00)
[2020-12-17] MEDS ORDERED: NS IV 500 ML 500 ML IV ONE (22:15)
--- NOTE | 2020-12-17 23:11 | Diagnostic Imaging Report ---
CHEST 1 VIEW, AP/PA ONLY Indication: Near syncope Comparison: None available. Findings: No focal airspace disease in the visualized lungs. Please note that the posterior lower lobes are poorly evaluated by portable radiography. No pleural effusion or pneumothorax. Normal cardiomediastinal silhouette. Impression: 1. No acute cardiopulmonary process by portable radiography. Dictated by: Dictated on workstation # [id number]
[2020-12-18 03:05] VITALS: BP 163/112
== END 2020-12-18 00:13 | disposition home or self-care (01) ==
LOC: EDUNIT# 20:50 → ER 20:53
DX: R55 Syncope and collapse (principal); Z20.822 Contact with and (suspected) exposure to COVID-19
CPT/HCPCS: 71045; 80053; 81000; 83880; 84484; 85025; 86141; 87636; 93005; 99284; G0480; 36415; 80320